=== PATIENT | male | born 1980 | race Caucasian/White ===

== ENCOUNTER 2022-12-17 15:57 | Emergency (ER) | payer BC ==
[2022-12-17] MEDS ORDERED: Ketorolac 60 MG/2 ML SDV IM STA (17:18)
[2022-12-17] MEDS ORDERED: TRIAMCINOLONE ACETONIDE INJECT STA (17:19)
[2022-12-17] MEDS ORDERED: Triamcinolone Acetonide 40 MG/ML 1 ML SDV INJECT STA (17:43)
== END 2022-12-17 18:31 | disposition home or self-care (01) ==
LOC: MW.ED 15:57
DX: M79.671 Pain in right foot (principal); M79.672 Pain in left foot
CPT/HCPCS: 96372; 99283; J1885; J3301